=== PATIENT | male | born 1950 | race Caucasian/White ===

== ENCOUNTER 2022-04-12 05:29 | Day surgery (SDC) | payer MEDICARE, OTHER ==
[~2022-04-12] VITALS: Ht 175.3 cm; Wt 79.5 kg
[~2022-04-12 05:29] MED LIST: ASPI-1444 PO; BUDE10.2 IH; GLIP5TAB11 PO; HYDR25TA PO; IBUP-2070 PO; LISI30TA4 PO; METF-515 PO; OMEP20TA20 PO; SAXA5TAB PO; SIMV-46 PO; ZOLP10TA6 PO
[2022-04-12] MEDS ORDERED: LIDOCAINE 2% 11 ML JELLY TP ONE (05:30)
[2022-04-12] MEDS ORDERED: LIDOCAINE 4% 50 ML SOLUTION TP ONE (05:30)
[2022-04-12] MEDS ORDERED: BENZOCAINE 20% 50 MCG/SPRAY 57 GM TP ONE (05:30)
[2022-04-12] MEDS ORDERED: ALBUTEROL SULFATE 2.5 MG/0.5 ML NEB SOLUTION NEB ONE (05:30)
[2022-04-12 06:43] LABS: COVID AG,FIA SOURCE NASAL SWAB
[2022-04-12] MEDS ORDERED: SODIUM CHLORIDE 0.9% 1,000 ML IV ONE (07:00)
[2022-04-12 07:46] LABS: GLUCOMETER DEV NAME(LOC) SDS.; GLUCOSE,POINT OF CARE 137 MG/DL (70-110)
[2022-04-12] MEDS ORDERED: EMPA10TA3 PO (07:53)
[2022-04-12] MEDS ORDERED: MONT-35 PO (07:53)
[2022-04-12] MEDS ORDERED: CARV3 PO (07:53)
[2022-04-12] MEDS ORDERED: TAMS-13 PO (07:53)
[2022-04-12] MEDS ORDERED: PRED-729 PO (07:53)
[2022-04-12] MEDS ORDERED: OMEP20 PO (07:53)
[2022-04-12] MEDS ORDERED: INSU100I26 SQ (07:53)
[2022-04-12] MEDS ORDERED: ATOR10TA PO (07:53)
[2022-04-12] MEDS ORDERED: SPIR-37 PO (07:53)
[2022-04-12] MEDS ORDERED: INSREG SQ (07:53)
[2022-04-12] MEDS ORDERED: DULA3PEN SQ (07:53)
[2022-04-12] MEDS ORDERED: FentaNYL CITRATE PF 100 MCG/2 ML VIAL ONE (08:20)
[2022-04-12] MEDS ORDERED: MIDAZOLAM HCL 5 MG/ML VIAL ONE (08:20)
[2022-04-12] MEDS ORDERED: MethylPREDNISolone SOD SUCC 125 MG/2 ML VIAL IVP ONE (09:15)
[2022-04-12] MEDS ORDERED: MethylPREDNISolone SOD SUCC 125 MG/2 ML VIAL ONE (09:26)
[2022-04-12] MEDS ORDERED: OXYGEN THERAPY IH SCH (20:00)
== END 2022-04-12 11:45 | disposition home or self-care (01) ==
LOC: SURGERY 05:29
PROVIDERS: ATTEND Internal Medicine Critical Care Medicine
DX: J38.4 Edema of larynx (principal); B37.0 Candidal stomatitis; I25.2 Old myocardial infarction; E11.9 Type 2 diabetes mellitus without complications; Z79.899 Other long term (current) drug therapy; Z20.822 Contact with and (suspected) exposure to COVID-19; Z98.890 Other specified postprocedural states; Z79.4 Long term (current) use of insulin
CPT/HCPCS: 31623; 82962; 87101; 87220; 87070; 31624; 94640; 71045; 87015; 87426; 87206; J3010; J2930; J2250; Q9967; C9803; J7613; Z7610